=== PATIENT | female | born 1970 | race Asian ===

== ENCOUNTER 2019-10-26 09:32 | Outpatient (CLI) | payer OTHER, SELFPAY ==
--- NOTE | ~2019-10-26 | NM_ITS ---
EXAMINATION: NM thyroid scan w uptake DATE: 10/27/2019 14:05 INDICATION: Thyrotoxicosis, unspecified without thyrotoxic crisis. COMPARISON: Thyroid ultrasound 02/19/2016 TECHNIQUE: 0.444 mCi I-123 was administered orally. Scintigraphic images of the thyroid gland were o btained at 24 hours. Thyroid uptake was calculated by the technologist. FINDINGS: The thyroid uptake is 31% (normal 10-30%), with the right lobe measuring 15% uptake and the left 17%. There is no focal area of decreased or increased activity to suggest hypofunctioning or hyperfunctio jillian nodule. IMPRESSION: 1. Mildly increased 24-hour iodine uptake, consistent with hyperthyroidism. 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
== END 2019-10-26 09:33 | disposition home or self-care (01) ==
PROVIDERS: PCP Family Medicine; Visit Provider Family Medicine
DX: E05.90 Thyrotoxicosis, unspecified without thyrotoxic crisis or storm (principal); R93.89 Abnormal findings on diagnostic imaging of other specified body structures
CPT/HCPCS: 78014; A9516

== ENCOUNTER → 2020-01-24 13:46 | Outpatient (CLI) | payer OTHER, SELFPAY ==
--- NOTE | ~2020-01-24 | MM_ITS ---
EXAMINATION: MM screening [facility] BI w ruslan HISTORY: Screening TECHNIQUE: Craniocaudal and mediolateral oblique 3-D tomosynthesis images were obtained and synthetic 2-D images were generated. CAD analysis was submitted and interpreted. COMPARISON: Comparison to multiple prior studies sequentially, with oldest reviewed study dated 01/18. BREAST PARENCHYMAL COMPOSITION: The breasts are heterogeneously dense, which may obscure small masses . FINDINGS: There is no evidence of suspicious mass, calcification, or architectural distortion to sugg est malignancy in either breast. There has been no suspicious interval change. IMPRESSION: 1. No mammographic evidence of malignancy. 2. Recommend routine screening mammography in one year. BI-RADS Category 1: Negative Reviewed, dictated and finalized at location A.
== END ==
PROVIDERS: PCP Family Medicine; Visit Provider Obstetrics & Gynecology Gynecology
DX: Z12.31 Encounter for screening mammogram for malignant neoplasm of breast (principal)
CPT/HCPCS: 77063; 77067

== ENCOUNTER → 2020-10-31 10:59 | Outpatient (CLI) | payer OTHER, SELFPAY ==
--- NOTE | ~2020-10-31 | US_ITS ---
EXAMINATION: US transvaginal DATE: 10/31/2020 11:25 INDICATION: Abnormal uterine bleeding Comparison:No prior studies for comparison.8.8 x 4.6 x 5.5 cm. There is a small fibroid at the fundus measuring 1.4 cm. There is a nabothian cysts. The endometrial complex measures 6 mm. The right ovary measures 2.1 x 2.6 x 1.3 cm and the left ovary measures 2.7 x 2.1 x 2.1 cm. There ar e small follicles in each ovary. Normal doppler signal in both ovaries. There is no free fluid in the pelvis. There are no abnormal masses seen on either side. IMPRESSION: 1. Small uterine fibroid at the fundus measures 1.4 cm. Reviewed, dictated and finalized at location B.
== END ==
PROVIDERS: PCP Family Medicine; Visit Provider Obstetrics & Gynecology
DX: N93.8 Other specified abnormal uterine and vaginal bleeding (principal); D25.9 Leiomyoma of uterus, unspecified
CPT/HCPCS: 76830

== ENCOUNTER → 2021-04-23 15:17 | Outpatient (CLI) | payer OTHER, SELFPAY ==
--- NOTE | ~2021-04-23 | XR_ITS ---
EXAMINATION: XR foot RT 2V DATE: 04/23/2021 15:46 INDICATION: Right foot pain. TECHNIQUE: 2 views of right foot were obtained. COMPARISON: None. FINDINGS: There is mild hallux valgus. There is a transverse fracture of diaphysis of third metatarsa l in near-anatomic alignment with callus formation. There is mild osteoarthritis of first metatarsoph alangeal joint and some of the interphalangeal joints. There are enthesophytes at the posterior and p lantar aspects of calcaneal tuberosity. IMPRESSION: 1. Healing stress fracture of diaphysis of third metatarsal. 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
== END ==
PROVIDERS: PCP Family Medicine; Visit Provider Nurse Practitioner Gerontology
DX: S92.331A Displaced fracture of third metatarsal bone, right foot, initial encounter for closed fracture (principal)
CPT/HCPCS: 73620

== ENCOUNTER → 2021-06-17 14:47 | Outpatient (CLI) | payer OTHER, SELFPAY ==
--- NOTE | ~2021-06-17 | MM_ITS ---
EXAMINATION: MM screening [facility] BI w ruslan HISTORY: Screening mammogram TECHNIQUE: Craniocaudal and mediolateral oblique 3-D tomosynthesis images were obtained and synthetic 2-D images were generated. CAD analysis was submitted and interpreted. COMPARISON: [facility] 06/15/2018, 03/05/2017, 02/21/2017 BREAST PARENCHYMAL COMPOSITION: The breasts are heterogeneously dense, which may obscure small masses . FINDINGS: There is no evidence of suspicious mass, calcification, or architectural distortion to sugg est malignancy in either breast. There has been no suspicious interval change. IMPRESSION: 1. No mammographic evidence of malignancy. 2. Recommend routine screening mammography in one year. BI-RADS Category 1: Negative Reviewed, dictated and finalized at location A. 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
== END ==
PROVIDERS: PCP Family Medicine; Visit Provider Obstetrics & Gynecology
DX: Z12.31 Encounter for screening mammogram for malignant neoplasm of breast (principal)
CPT/HCPCS: 77063; 77067

== ENCOUNTER 2021-07-24 15:07 | Emergency (ER) | payer OTHER, SELFPAY ==
--- NOTE | ~2021-07-24 | XR_ITS ---
XR hand RT min 3V DATE: 07/24/2021 15:34 INDICATION: Hand injury. Pain, swelling, bruising at fourth and fifth metacarpal area TECHNIQUE: 4 views COMPARISON: None FINDINGS: There is prominent soft tissue swelling dorsally at the metacarpophalangeal area. No fracture or dislocation, periosteal reaction or bone destruction. There is prominent osteoarthriti c change at the interphalangeal joint of the first digit. No erosive change. No chondrocalcinosis. 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
[2021-07-24 15:10] VITALS: BP 156/90; PULSE 74; RESP 16; TEMP 36.7; O2SAT 100
[2021-07-24 15:41] VITALS: BP 153/92; PULSE 66; RESP 14; TEMP 36.2; O2SAT 100
--- NOTE | 2021-07-24 15:58 | PC.NURSE ---
Ice applied to right hand and elevated.
--- NOTE | 2021-07-24 16:22 | ED.UPPEXIN ---
HPI - Extremity Injury (Upper) General Chief Complaint: Extremity Injury, Upper Stated Complaint: hand injury Time Seen by Provider: 07/24/21 16:22 Source: patient Mode of arrival: ambulatory Limitations: no limitations History of Present Illness HPI narrative: Patient is a 51-year-old female presenting for evaluation of right hand pain. 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 Pt is right hand dominant. She reports bruising and a small abrasion to the back of the right hand. She reports pain with movement. She denies numbness or weakness. Pt denies elbow pain, shoulder pain, other injury. Related Data Allergies Allergy/AdvReac Type Severity Reaction Status Date / Time amoxicillin Allergy Mild hives Verified 06/04/21 14:34 Penicillins Allergy Mild hives Verified 06/04/21 14:34 vancomycin Allergy Mild hives Verified 06/04/21 14:34 Review of Systems Review of Systems: CONSTITUTIONAL: Denies fever CARDIOVASCULAR: Denies chest pain RESPIRATORY: Denies cough or dyspnea. GASTROINTESTINAL: Denies abdominal pain SKIN: Denies rash, reports small abrasion to the dorsum of the right hand, reports bruising MUSCULOSKELETAL: Denies back pain, right hand pain NEUROLOGIC: Denies headache PMFSH Past Medical History Medical History Elevated BP without diagnosis of hypertension Hyperthyroidism Stress fracture of metatarsal bone Social History Social History Social History: Smoking status: Never smoker Second hand tobacco smoke exposure: No Alcohol intake: never Substance use: never Substance use type: does not use Gender identity (if verbalized by the patient): Female Sexual Orientation (if Verbalized by the Patient): Straight or Heterosexual Exam Narrative: GENERAL: Awake, alert, conversant HEAD: Normocephalic, atraumatic. EYES: PERRLA and EOMI. CHEST: No respiratory distress, breathing even and non labored HEART: Regular rate, sinus rhythm ABDOMEN:Non distended, non tender EXTREMITIES: Normal range of motion. Patient with edema, contusion, ecchymosis to the dorsum of the right hand about the third MCP. Nonboggy. Patient without injury or deformity to the phalanxes. Radial pulse 2+. Intact sensation median, ulnar, radial nerve distribution. SKIN: Warm, dry, no rash. NEURO:No focal deficits. Alert and oriented x3 Course Vital Signs Vital signs: Vital Signs Temperature 36.7 C 07/24/21 15:10 Pulse Rate 74 07/24/21 15:10 Respiratory Rate 16 07/24/21 15:10 Blood Pressure 156/90 H 07/24/21 15:10 Pulse Oximetry 100 07/24/21 15:10 Temperature 36.2 C L 07/24/21 15:41 Pulse Rate 66 07/24/21 15:41 Respiratory Rate 14 07/24/21 15:41 Blood Pressure 153/92 H 07/24/21 15:41 Pulse Oximetry 100 07/24/21 15:41 MDM - Extremity Injury (Upper) MDM Narrative Medical decision making narrative: Patient presenting for evaluation of right hand trauma. Patient is neurovascularly intact. She has edema, ecchymosis consistent with contusion to the dorsum of the right hand about the third MCP. Patient without any edema, injury to the phalanxes. Intact strength and sensation. X-ray is reassuring. Wound was dressed. There is no laceration to suture. Patient was given discharge instructions, advised to return should symptoms change or worsen. Patient tetanus was updated prior to discharge. Differential Diagnosis Differential diagnosis: Likely other (Contusion, laceration, fracture, dislocation) Imaging Data Radiologist's impression: ITS Impressions Hand X-Ray 07/24/21 15:37 IMPRESSION: Prominent dorsal soft tissue thickening at metacarpophalangeal area No fracture or dislocation Discharge Plan Discharge Clinical Impression: Contusion of hand, right Patient Disposition: H
[2021-07-24] MEDS: TETANUS,DIPHTHERIA,AC PERTUSSIS ADULT (0.5 ML) BOOSTRIX IM (16:40)
== END 2021-07-24 16:46 | disposition home or self-care (01) ==
PROVIDERS: Emergency Provider Emergency Medicine; PCP Family Medicine
DX: S60.221A Contusion of right hand, initial encounter (principal); Z23 Encounter for immunization; E05.90 Thyrotoxicosis, unspecified without thyrotoxic crisis or storm; W23.0XXA Caught, crushed, jammed, or pinched between moving objects, initial encounter
CPT/HCPCS: 73130; 90471; 90715; 99283

== ENCOUNTER 2021-08-06 15:42 | Outpatient (CLI) | payer OTHER, SELFPAY ==
--- NOTE | ~2021-08-06 | XR_ITS ---
XR hand RT min 3V DATE: 08/06/2021 16:14 INDICATION: Right hand injury, contusion TECHNIQUE: 3 views COMPARISON: 07/24/2021 right hand FINDINGS: Interval resolution of soft tissue swelling at the dorsal metacarpophalangeal area since 07/24/2021. There is a Prominent osteoarthritis at the interphalangeal joint of the first digit. Mild osteoarthritis at the first carpometacarpal joint. No fracture or dislocation, periosteal reaction or bone destruction is detected. No erosive change or chondrocalcinosis. IMPRESSION: Interval resolution of dorsal metacarpophalangeal area soft tissue swelling Reviewed, dictated and finalized at location A.
--- NOTE | ~2021-08-06 | XR_ITS ---
XR knee LT min 4V 08/06/2021 16:15 Indication: Left knee pain Procedure: 4 views left knee Comparison: 11/12/2011 Findings: No fracture, subluxation or dislocation. No significant joint space narrowing. No joint eff usion. No foreign bodies. Impression: 1: No acute bone or joint abnormality. Reviewed, dictated and finalized at location B. Impression: 1: No acute bone or joint abnormality.
== END 2021-08-06 15:43 | disposition home or self-care (01) ==
LOC: ANHIMG 15:47
PROVIDERS: PCP Family Medicine; Visit Provider Nurse Practitioner Gerontology
DX: S60.221A Contusion of right hand, initial encounter (principal); M19.041 Primary osteoarthritis, right hand; M79.89 Other specified soft tissue disorders
CPT/HCPCS: 73130; 73564

== ENCOUNTER → 2022-06-13 08:20 | Outpatient (CLI) | payer OTHER, SELFPAY ==
--- NOTE | ~2022-06-13 | XR_ITS ---
AP and lateral views of the thoracolumbar spine Clinical history: Spondylosis, radiculopathy COMPARISON: 03/08/2017 FINDINGS: No fracture or subluxation seen. Vertebral bodies maintain normal height and alignment. The re are mild facet joint degenerative changes at the lower lumbar spine. Soft tissues are unremarkable . IMPRESSION: Mild facet joint degenerative changes at the lower lumbar spine. Reviewed, dictated and finalized at location . 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
== END ==
PROVIDERS: PCP Family Medicine; Visit Provider Family Medicine
DX: M47.24 Other spondylosis with radiculopathy, thoracic region (principal); G89.29 Other chronic pain; M51.36 Other intervertebral disc degeneration, lumbar region
CPT/HCPCS: 72080

== ENCOUNTER → 2022-10-17 07:16 | Outpatient (CLI) | payer OTHER, SELFPAY ==
--- NOTE | ~2022-10-17 | MM_ITS ---
EXAMINATION: MM screening [facility] BI w ruslan HISTORY: Screening mammogram TECHNIQUE: Craniocaudal and mediolateral oblique 3-D tomosynthesis images were obtained and synthetic 2-D images were generated. CAD analysis was submitted and interpreted. COMPARISON: 06/17/2021, 01/24/2020, 07/22/2018 BREAST PARENCHYMAL COMPOSITION:The breasts are heterogeneously dense, which may obscure small masses. FINDINGS: No suspicious mass, calcification, or architectural distortion are identified in either tamiko ast to suggest malignancy. There has been no suspicious interval change. IMPRESSION: No mammographic evidence of malignancy. Recommend routine screening mammography in one year. BI-RADS Category 1: Negative Reviewed, dictated and finalized at location .
== END ==
PROVIDERS: PCP Family Medicine; Visit Provider Nurse Practitioner
DX: Z12.31 Encounter for screening mammogram for malignant neoplasm of breast (principal)
CPT/HCPCS: 77063; 77067

== ENCOUNTER 2024-04-19 15:36 | Outpatient (CLI) | payer OTHER, BC, SELFPAY ==
--- NOTE | ~2024-04-19 | MM_ITS ---
EXAMINATION: MM screening [facility] w ruslan HISTORY: Screening TECHNIQUE: Craniocaudal and mediolateral oblique 3-D tomosynthesis images were obtained and synthetic 2-D images were generated. CAD analysis was submitted and interpreted. COMPARISON: Comparison to multiple prior studies sequentially, with oldest reviewed study dated 02/21. BREAST PARENCHYMAL COMPOSITION: Dense: The breasts are heterogeneously dense, which may obscure small masses FINDINGS: There is no evidence of suspicious mass, calcification, or architectural distortion to sugg est malignancy in either breast. There has been no suspicious interval change. IMPRESSION: 1. No mammographic evidence of malignancy. 2. Recommend routine screening mammography in one year. BI-RADS Category 1: Negative Reviewed, dictated and finalized at location B. 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
== END 2024-04-19 15:37 | disposition home or self-care (01) ==
LOC: MICIMG 15:38
PROVIDERS: PCP Nurse Practitioner Women's Health; Visit Provider Nurse Practitioner Women's Health
DX: Z12.31 Encounter for screening mammogram for malignant neoplasm of breast (principal)
CPT/HCPCS: 77063; 77067